=== PATIENT | male | born 1950 | race Asian ===

== ENCOUNTER 2024-05-12 15:09 | Emergency (ER) | payer OTHER, SELFPAY ==
[2024-05-12] VITALS (13 sets, daily range): BP systolic 154–171; BP diastolic 60–70
[2024-05-12 15:27] LABS: % Basophils 0.9 % (0-2); % Eosinophils 2.9 % (0-6); % Immature Granulocytes 0.9 % (0-0.5); % Lymphocytes 13.1 % (20.5-51.1); % Neutrophils 68.2 % (42.2-75.2); Absolute Basophils 0.1 10^3/uL (0-0.2); Absolute Eosinophils 0.2 10^3/uL (0-0.7); Absolute Immature Granulocytes 0.1 10^3/uL (0-0.05); Absolute Lymphocytes 0.9 10^3/uL (1.2-3.4); Absolute Neutrophils 4.6 10^3/uL (1.4-6.5); Hematocrit 36.9 % (39.0-52.0); Hemoglobin 12.2 g/dL (13.0-18.0); Mean Corp Hgb Conc. 33.1 g/dL (33.0-37.0); Mean Corpuscular Volume 84.6 fL (80.0-94.0); Mean Platelet Volume 11.1 fL (7.4-10.4); Nucleated Red Blood Cells % 0 % (-); Platelet Count 152 10^3/uL (130-400); Red Blood Cell Count 4.36 10^6/uL (4.70-6.10); Red Cell Dist. Width 14.1 % (11.5-14.5); White Blood Cell Count 6.8 10^3/uL (4.8-10.8)
--- NOTE | 2024-05-12 15:28 | ED.GENMED ---
History of Present Illness
General
Chief Complaint: Dizziness
Time Seen by Provider: 05/12/24 15:15
History of Present Illness
History of Present Illness:
73-year-old male with history of end-stage renal disease on hemodialysis presenting to the emergency department with syncopal episode. Patient presents from dialysis center where he had a syncopal episode after dialysis have been completed.
Patient arrives by medics. Patient also arrives with son. Patient does not speak Turkmen, however son at bedside to translate. Per medics, patient initially somnolent and route, however now more responsive. Son notes that he has been called
multiple times in the past from dialysis center with low blood pressure after dialysis, watched him for a while and blood pressure improved. Patient on arrival without acute complaints. He reports that he is feeling better. Denies chest pain or
difficulty breathing. Denies any recent fever or illness. Denies abdominal pain or vomiting. Denies weakness or numbness to his extremities. Denies additional acute medical complaints
Phy Exam
Physical Exam
Physical Exam:
General: Well-appearing, no clinical signs of dehydration, nontoxic and in no acute distress
HEENT: protecting airway
Neck: appears supple
CV: Normal heart rate, regular rhythm
Resp: No accessory muscle use, no increased work of breathing, lungs clear to auscultation bilaterally
Abd: Soft and non-distended, no tenderness to palpation
Extremities: No deformities, no swelling. Left AV fistula with palpable thrill
Neuro: alert, no focal neurologic deficit
: deferred
Rectal: deferred
Psych: Normal affect
Skin: Intact
Course
Orders/Labs/Results
Orders:
Orders
05/12/24 15:14
Electrocardiogram (*1) Urgent
Reason for Study: Vertigo / Dizzy
EKG- Treatment ONCE
05/12/24 15:16
Complete Blood Count/With Diff Urgent
Comprehensive Metabolic Panel Urgent
Troponin I Urgent
05/12/24 16:14
EKG- Treatment ONCE
05/12/24 17:07
CR Chest - 2 Views Urgent
Comment:
Reason For Exam: syncope
05/12/24 17:44
Troponin I Urgent
05/12/24 18:00
Electrocardiogram (*1) Urgent
Reason for Study: Syncope
Abnormal Lab Results
05/12/24
15:16
RBC 4.36 L 10^6/uL
(4.70-6.10)
Hgb 12.2 L g/dL
(13.0-18.0)
Hct 36.9 L %
(39.0-52.0)
MPV 11.1 H fL
(7.4-10.4)
Abs Immat Gran (auto) 0.1 H 10^3/uL
(0-0.05)
Absolute Lymphs (auto) 0.9 L 10^3/uL
(1.2-3.4)
Absolute Monos (auto) 1.0 H 10^3/uL
(0.1-0.6)
Immature Gran % 0.9 H %
(0-0.5)
Lymphocytes % 13.1 L %
(20.5-51.1)
Monocytes % 14.0 H %
(1.7-9.3)
Chloride 95 L mmol/L
(98-107)
Creatinine 2.8 H mg/dL
(0.7-1.3)
Glucose 173 H mg/dl
(70-99)
Alkaline Phosphatase 225 H U/L
(38-126)
05/12/24 15:16
05/12/24 15:16
Vital Signs
Initial and Last Documented VS:
Initial Vital Signs
Temp Pulse Resp BP Pulse Ox
97.6 F 62 16 161/60 91
05/12/24 15:12 05/12/24 15:12 05/12/24 15:12 05/12/24 15:12 05/12/24 15:12
Last Documented Vital Signs
Temp Pulse Resp BP Pulse Ox
97.6 F 62 17 163/63 94
05/12/24 15:12 05/12/24 17:15 05/12/24 16:45 05/12/24 17:00 05/12/24 17:15
MDM/Problems Addressed
MDM/Problems Addressed:
73-year-old male with history of end-stage renal disease on hemodialysis presenting after a syncopal episode. Vital signs significant for hypertension.
On exam, patient is well-appearing, resting comfortably, no acute distress or discomfort. Patient without present acute medical complaints. Suspect likely vasovagal etiology to preceding symptoms. Suspect that patient had a brief episode of
hypotension after fluid loss from hemodialysis, which has since improved. EKG obtained on arrival, nonischemic, no arrhythmia. No focal neurologic deficits on exam without concern for central neurologic process or CVA. Will screen with laboratory
analysis and continue to closely monitor.
16:00 -initial troponin detectable, however within normal limits. Will send repeat with repeat EKG
18:50 -repeat troponin is unchanged. Chest x-ray without acute cardiopulmonary disease. On reassessment remains hemodynamically stable. Feel stable for discharge. Return precautions discussed to patient and son at bedside verbalized
understanding
*EKG
Interpreted by ED Provider?: Yes
EKG Intrepretation Date: 05/12/24
EKG Intrepretation Time: 15:34
Interpretation: normal
Comparison EKG: no comparison EKG present
Heart Rate: 62
Rate: normal
Rhythm: sinus
Chris[place]: normal axis
Interval: normal interval
QRS Pattern: normal QRS
Ischemia: no ischemia
*Critical Care Note
Total Time (30-74mins, 75-104mins- exclusive of procedures): Not Applicable
ED Attending Note
-
Portions of this chart may have been created with voice recognition software.� Occasional wrong word or��sound alike� substitutions may have occurred due to the inherent limitations of voice recognition software.
Discharge Plan
Departure
Referrals:
Shelia Masterson MD, Resident [Family Provider] -
Interventions
Interventions:
*Risk Screen - Suicide Last Done: 05/12/24 15:12
*General Assessment Last Done: 05/12/24 15:12
*Neglect/Abuse Screening Last Done: 05/12/24 15:12
*ED COVID-19 Vaccine History Last Done: 05/12/24 15:12
ED- Neurological Assessment Last Done: 05/12/24 15:34
ED- Cardiac Assessment Last Done: 05/12/24 15:34
ED Swallowing Screen Last Done: 05/12/24 15:34
Discharge Date and Time
Print Language: WELSH
[2024-05-12 15:40] LABS: ALT (SGPT) 14 U/L (0-50); AST (SGOT) 22 U/L (17-59); Albumin 4.8 g/dl (3.5-5.0); Alkaline Phosphatase 225 U/L (38-126); Blood Urea Nitrogen 20 mg/dl (9-20); Calcium 9.5 mg/dl (8.4-10.2); Carbon Dioxide 29 mmol/L (22-30); Chloride 95 mmol/L (98-107); Glucose 173 mg/dl (70-99); Potassium 3.8 mmol/L (3.5-5.1); Sodium 136 mmol/L (135-145); Total Bilirubin 0.8 mg/dl (0.2-1.3); Total Protein 7.7 g/dl (6.3-8.2)
[2024-05-12 15:51] LABS: Troponin I 0.024 ng/ml
[2024-05-12 18:16] LABS: Troponin I 0.024 ng/ml
== END 2024-05-12 19:31 | disposition home or self-care (01) ==
LOC: EMR 15:09
PROVIDERS: EMERGENCY PHYSICIAN Student in an Organized Health Care Education/Training Program
DX: R55 Syncope and collapse (principal); R42 Dizziness and giddiness; I12.0 Hypertensive chronic kidney disease with stage 5 chronic kidney disease or end stage renal disease; N18.6 End stage renal disease; Z99.2 Dependence on renal dialysis
CPT/HCPCS: 99283; 71046; 80053; 84484; 85025; 93005

== ENCOUNTER → 2024-07-27 12:53 | Outpatient (REF) | payer OTHER, SELFPAY | LOC: HWRCS 12:53 | PROVIDERS: ATTENDING PHYSICIAN Student in an Organized Health Care Education/Training Program; FAMILY PHYSICIAN Family Medicine | DX: I50.30 Unspecified diastolic (congestive) heart failure (principal) | CPT/HCPCS: 93306 ==

== ENCOUNTER → 2025-01-11 13:41 | Outpatient (REF) | payer OTHER, SELFPAY | LOC: PET 13:41 | PROVIDERS: ATTENDING PHYSICIAN Student in an Organized Health Care Education/Training Program | DX: R06.02 Shortness of breath (principal) | CPT/HCPCS: 78431; A9555; J2785 ==

== ENCOUNTER → 2025-02-15 10:02 | Outpatient (REF) | payer OTHER, SELFPAY | LOC: HWRAD 10:02 | PROVIDERS: ATTENDING PHYSICIAN Student in an Organized Health Care Education/Training Program | DX: R05.3 Chronic cough (principal) | CPT/HCPCS: 71046 ==